=== PATIENT | male | born 1985 | race Caucasian/White ===

== ENCOUNTER 2020-01-12 07:30 | Outpatient (RCR) | payer OTHER, SELFPAY ==
--- NOTE | 2020-01-13 09:30 | PC.NURSE ---
Pt called out today due to not sleeping and feeling exhausted. Pt will start tomorrow.
--- NOTE | 2020-01-13 09:30 | PC.NURSE ---
Please note that pt prefers to be called Anusha and uses she/her pronouns. Pt was scheduled to begin the PHP program today, 01/13/20 at 9 am. Pt called her clinician to inform that she did not sleep last night and will be unable to start today. Pt will start tomorrow, 01/14/20.
--- NOTE | 2020-01-13 14:51 | PC.NURSE ---
TW was forwarded a message left by pt stating that she would be unable to participate in PHP at this time as her symptoms are becoming severe. Pt reported that she was not well and requested a call back. TW called pt back and pt informed TW that she could no longer eat solid foods and has felt manic over the past few days. Pt states that she had been exposed to someone with COVID and she was under mandatory quarantine. TW gave pt the number to [facility] crisis, which she gladly accepted, and requested that pt call for an evaluation. Pt appeared relieved when told crisis could evaluate via telehealth. Pt reported that she felt safe calling crisis and agreed to keep the program updated in regards to her status. Pt agreeable and thanked TW for the return call.
--- NOTE | 2020-01-17 10:19 | PC.NURSE ---
Pt was scheduled for a reassessment after pt had called reporting she was ready to start the program. Reassessment scheduled for 01/17/20 at 10am. Pt was a no show for this appointment. TW called pt and left message asking for a call back. Call back number given. Pt's phone went directly to [employer].
== END 2020-01-31 07:57 | disposition home or self-care (01) ==
LOC: HO.PHPA 07:30
PROVIDERS: Visit Provider Psychiatry & Neurology Psychiatry
DX: F32.9 Major depressive disorder, single episode, unspecified (principal); F64.0 Transsexualism

== ENCOUNTER 2020-01-31 07:52 | Outpatient (RCR) | payer OTHER, SELFPAY ==
--- NOTE | 2020-02-01 10:19 | PC.NURSE ---
Patient is a 34 year old transgendered male to female who was scheduled to start the PHP program today however patient reported to staff that she was feeling suicidal, denied current plan or intent. Reports that she overdosed 3 days ago and was sent home from the emergency room in [place] because she thinks that no one believes that she overdosed. Pt was recently hospitalized and reported to staff that she was put on Thorazine however she stopped taking medications once discharged from hospital. Pt is delusional. Talks about being a vampire for 3 years and has drank 100 gallons of blood. Uses lancets to owusu her skin and drink her blood. Also stated that she needs to be legally committed as she wants to eat people. Patient spoke to staff and does not want to go to [place] and would prefer to go to [facility] for a crisis evaluation. Pt is going to drive to [facility] as she wants to talk to crisis. She is help seeking and wants to be a voluntary patient. Nurse to Nurse done with Jordyn in [facility] ER.
--- NOTE | 2020-02-01 11:40 | PC.NURSE ---
Pt was scheduled to begin PHP today. Pt present for the beginning of the 9am community meeting, however was noticed to leave the meeting abruptly. Pt then called TW to report that she had received a phone call which disrupted her camera and microphone. TW instructed pt to log into link B for the 930 group. At 933am TW received a call from pt stating that she was too severe to attend PHP. TW questioned if pt was going to crisis. Pt said no, that she has been to crisis and has been evaluated over 30 times and has been sent home. Pt reports that they tell her that she is at baseline and she gets discharged. Pt reports that she is a vampire and no one believes her. Pt stated, I need to be legally committed. Tw asked PHP supervior to come into the call, pt agreed and was placed on speaker. Pt was offered to be sectioned to the ED, however pt respoded that she needed something stronger than a section. . Pt reported that she wanted to eat people and that she has been a vampire for 3 years and she drinks over 100 gallons of blood. Pt reports that no one believes her- she hung herself 2x in [place] and she was discharged. Pt reported that she overdosed on all her medications and she was discharged. Pt reports that she can only eat 100 calories a day. Pt reports that crisis hangs up on her when she calls. Pt reports crisis does not believe her, her family an ssupport peopple do not believe her. Pt does not want to go to [facility] as they discharge her. PHP home supervisor suggested a section to [facility]. Pt agreeable. Tw agreed to check in with pt every 5t minutes to maintain safety. Pt agreed she could be safe while PHP staff work on gettign pt to [facility]. TW called pt to check in and informed her that if we section her she will go to [place]. Pt agreed to be transported voluntarily. TW called pt again- informed that ambulance company does not have the means to transport from [place] to [place]. Pt agrees to drive herself to [facility]. Pt contracted for safety and agreed to call PHP when she arrives. Meanwhile PHP staff contacted [facility] crisis and put pt on alert; PHP RN completed nurse to nurse in the [facility] ED. Pt called at 1050am to infom that she had arrived to the ED, was assured information had been passed to ED and crisis staff and that Pt should check herself in.
== END 2020-02-02 10:33 | disposition home or self-care (01) ==
LOC: HO.PHPA 07:52
PROVIDERS: Visit Provider Psychiatry & Neurology Psychiatry
DX: F32.9 Major depressive disorder, single episode, unspecified (principal)

== ENCOUNTER 2020-02-01 10:55 | Emergency (ER) | payer MEDICAID, SELFPAY ==
[2020-02-01 11:08] VITALS: BP 135/74; PULSE 92; RESP 18; TEMP 36.9; O2SAT 96; BMI 42.5
[2020-02-01 11:16] VITALS: BP 135/74; PULSE 92; RESP 18; TEMP 36.9; O2SAT 96
[2020-02-01 13:18] LABS: MANUAL DIFF FLAG NO
[2020-02-01 13:33] LABS: Basophils Percent Auto 0.6 % (0-2); Eosinophils Absolute Auto 0.1 X10*3/uL (0.0-0.4); Eosinophils Percent Auto 1.1 % (0-4); Imm Gran Abs Auto 0.04 X10*3/uL (0.00-0.03); Imm Gran Pct Auto 0.6 % (0.0-0.4); Lymphocytes Absolute Auto 1.3 X10*3/uL (1.2-4.9); Lymphocytes Percent Auto 20.5 % (20-40); Mean Corpuscular Hemoglobin 29.3 pg (27.0-33.0); Mean Corpuscular Volume 84.9 fL (80-98); Monocytes Absolute Auto 0.5 X10*3/uL (0.1-1.2); Monocytes Percent Auto 8.2 % (2-11); Neutrophils Absolute Auto 4.3 X10*3/uL (2.0-8.3); Platelet Count 240 X10*3/uL (160-400); White Blood Count 6.2 X10*3/uL (4.8-10.8)
[2020-02-01 13:46] LABS: Ethanol < 10 mg/dL
[2020-02-01 13:48] LABS: Amphetamine Screen Urine Not Detected (Not Detect); Barbiturates, Urine Not Detected (Not Detect); Benzodiazepines Screen Urine Not Detected (Not Detect); Cannabinoid Screen Urine Not Detected (Not Detect); Cocaine Screen Urine Not Detected (Not Detect); Opiate Screen Urine Not Detected (Not Detect); Phencyclidine Screen Urine Not Detected (Not Detect)
[2020-02-01 13:50] LABS: Acetaminophen LAB < 1 mcg/mL (<30); Albumin Level 4.7 g/dL (3.5-5.0); Alkaline Phosphatase 111 U/L (39-117); Anion Gap 12 (12-20); Bilirubin Total 0.3 mg/dL (0.0-1.0); Blood Urea Nitrogen 13 mg/dL (9-16); Calcium 10.1 mg/dL (8.4-10.2); Carbon Dioxide 28 mmol/L (22-29); Chloride 105 mmol/L (96-108); Estimated Glomerular Filt Rate > 60; Glucose Random 130 mg/dL (60-115); Potassium 4.2 mmol/l (3.3-5.1); Salicylate < 5.0 mg/dL (15-30); Sodium 141 mmol/L (135-145); Total Protein 7.6 g/dL (6.5-8.0)
[2020-02-01 14:10] LABS: Thyroid Stimulating Hormone 1.38 uIU/mL (0.32-4.0)
--- NOTE | 2020-02-01 16:19 | ED_ITS ---
HPI - Psych General Chief Complaint: Psychiatric Symptoms Stated Complaint: CRISIS Time Seen by Provider: 02/01/20 12:00 History of Present Illness HPI Narrative: 35-year-old female who presents to the emergency department for evaluation of suicidal and homicidal ideation. The patient is a man in transition to a woman. She states that approximately 3 and half years prior he was smoking marijuana and watching a vampire moving. She states that this event caused her to become a vampire. She states that she can not go out into the sun without having a seizure. She states that she is unable to walk barefoot since she is a vampire. She states that her body temperature is extremely level fall fall which is expected in a vampire. She states that if she needs human food and causes her to vomit. She states that she sticks her arm multiple times and socks on her blood. She believes that she has drained over 100 L of her own blood in order to stay alive. She states that she is suicidal and that she wants to hang herself or drown herself. She states that she overdosed on me dications for days prior was seen at [facility] and discharged home. The patient states that in order to get sexually aroused she has been watching pornography which involves been enjoying them cells in very bloody ways. She also states that she wants to kill a co-worker. She states that she has severe abdominal pain and has been constant for many years. She states that she has not been able to sleep for 3 weeks. She states she has been seen and many different hospitals and was last seen at [facility] several days prior Related Data Home Medications Medication Instructions Recorded Confirmed No Known Home Meds 02/01/20 02/01/20 Allergies Allergy/AdvReac Type Severity Reaction Status Date / Time No Known Allergies Allergy Unverified 02/01/20 12:00 Review of Systems Review of Systems: Yes all other systems are reviewed and are negative Constitutional: Constitutional: Reports as per HPI Eyes: Eyes: Reports as per HPI ENT: Reports as per HPI Cardiovascular: Cardiovascular: Reports as per HPI Respiratory: Respiratory: Reports as per HPI Gastrointestinal: Gastrointestinal: Reports as per HPI Genitourinary: Genitourinary: Reports as per HPI Musculoskeletal: Musculoskeletal: Reports as per HPI Integumentary/Breasts: Skin/Breast: Reports as per HPI Neurologic: Reports as per HPI and Reports Abnormal speech present Psychiatric: Psychiatric: Reports as per HPI Allergic/Immunologic: Allergic/Immunologic: Reports as per HPI [facility] Past Medical History Medical History Hypothyroidism Social History Social History Alcohol intake: unknown Smoking Status: Unknown if ever smoked Use of substances other than those prescribed or required for medical reasons: Unknown Advance Directives: No Advance Directives Information Provided: No Physical Exam Vital Signs: Vital Signs: Last Vital Signs Temp 98.4 F 02/01/20 11:16 Pulse 92 02/01/20 11:16 Resp 18 02/01/20 11:16 BP 135/74 02/01/20 11:16 Pulse Ox 96 02/01/20 11:16 Body Mass Index 42.5 Const: General: cooperative, no acute distress, alert and awake Orientation/consciousness: oriented to person and oriented to place Limitations: no limitations HENMT: Head: Yes normal to inspection, Yes normocephalic and Yes atraumatic Ears: external ears normal Eyes: General: appearance normal, both eyes and all related structures Periorbital: periorbital findings normal Eyelids: Yes eyelids normal Conjunctivae: conjunctivae normal Sclerae: sclerae normal Corneas: corneas normal Pupils: Equal, round and reactive pupils present Direct Ophthalmoscopy: normal light reflex Neck: Neck: Yes normal visual inspection and Yes supple Lymphatic: no l ymphadenopathy noted Chest: Chest palpation & inspection: normal inspection of the chest and normal palpation of entire chest wall Resp: Effort & Inspection: normal respiratory effort, abnormal respiratory pattern, no audible wheezes and no respiratory distress Auscultation: clear to auscultation bilaterally, no crackles, no rales, no rhonchi and no wheezes Cardio: Rate: regular rate Rhythm: regular rhythm Heart sounds: S1 normal heart sound present, S2 normal heart sound present and Murmur heart sound present GI: Inspection: No distended Palpation (GI): Soft to palpation, nontender, no guarding and No hepatosplenomegaly present Auscultation: normal bowel sounds : General: Yes no CVA tenderness Back/Spine/Pelvis: Back: no CVA tenderness Skin: Rashes: no rashes Wounds: wounds noted (Multiple puncture lesions on the patient's arms consistent with self injury) Neuro: General: oriented to person and oriented to place Cranial nerves: Yes CN's II-XII intact bilaterally and Yes Equal, round and reactive pupils present Cognition (Neuro): normal cognition Speech: Abnormal speech present Motor exam (neuro): 5/5 motor strength present throughout Extrem: General: Yes normal to inspection, Yes full ROM, Yes no pedal edema and Yes no calf tenderness Psych: Speech and movement: Normal speech and movement present and Clear speech present Affect: Indifferent affect present and Other affect and mood findings present (Very flat affect) Attitude: cooperative Thought content: Suicidality present, Homicidality present and delusions (Fixed delusions around being a vampire) Course Course Course Narrative: 35-year-old female who presents to the emergency department for evaluation of suicidal and homicidal ideation and with a fixed delusion of being a vampire. The patient's examination is consistent with self-inflicted wounds where she has been cutting himself to suck his own blood. Patient's laboratory evaluation revealed a slightly elevated glucose of 130, slight elevation in his AST and ALT of 34 and 55. Urine tox screen was negative. Alcohol was negative. TSH was within the normal range. The patient was m edically cleared for crisis evaluation. The patient was seen by N. Given his suicidal and homicidal ideation, he was placed on a Section 12 and will be kept in the emergency department until an appropriate psychiatric bed can be located. At the end of my shift, the patient's care was turned over to my colleague, Dr. Letha Fernandez. MDM - Psych Restraints Face to Face Assessment: Face to Face Assessment: Current Situation: After assessment of the patient, a review of the pertinent medical record and a discussion with nursing staff, I feel the patient requires a restrain intervention. Reaction To: [] Medical Condition: [] Behavioral State: [] Continued Need: [] Lab Data Result diagrams: 02/01/20 13:12 02/01/20 13:12 Labs: Lab Results 02/01/20 02/01/20 02/01/20 Range/Units 12:54 13:12 13:12 WBC 6.2 (4.8-10.8) X10*3/uL RBC 5.35 (4.20-5.50) X10*6/uL Hgb 15.7 (12.0-16.0) g/dl Hct 45.4 (37-47) % MCV 84.9 (80-98) fL MCH 29.3 (27.0-33.0) pg MCHC 34.6 (31.0-35.0) g/dl RDW 12.0 (11.0-16.0) % Plt Count 240 (160-400) X10*3/uL MPV 9.6 (9.4-12.3) fL Immature Gran % (Auto) 0.6 H (0.0-0.4) % Neut % (Auto) 69.0 (45-73) % Lymph % (Auto) 20.5 (20-40) % Crane % (Auto) 8.2 (2-11) % Eos % (Auto) 1.1 (0-4) % Baso % (Auto) 0.6 (0-2) % Lymph # (Auto) 1.3 (1.2-4.9) X10*3/uL Crane # (Auto) 0.5 (0.1-1.2) X10*3/uL Eos # (Auto) 0.1 (0.0-0.4) X10*3/uL Baso # (Auto) 0.0 (0.0-0.2) X10*3/uL Abs Immat Gran (auto) 0.04 H (0.00-0.03) X10*3/uL Absolute Neuts (auto) 4.3 (2.0-8.3) X10*3/uL Absolute Nucleated RBC 0.000 (0.0-0.012) X10*3/uL Nucleated RBC % (auto) 0.0 (0.0-0.2) /100WBC Sodium 141 (135-145) mmol/L Potassium 4.2 (3.3-5.1) mmol/l Chloride 105 (96-108) mmol/L Carbon Dioxide 28 (22-29) mmol/L Anion Gap 12 (12-20) BUN 13 (9-16) mg/dL Creatinine 0.91 (0.5-1.4) mg/dL Estim Creat Clear Calc 104.0 Estimated GFR > 60 Random Glucose 130 H (60-115) mg/dL Calcium 10.1 (8.4-10.2) mg/dL Total Bilirubin 0.3 (0.0-1.0) mg/dL AST 34 H (5-31) U/L ALT 55 H (0-31) U/L Alkaline Phosphatase 111 (39-117) U/L Total Protein 7.6 (6.5-8.0) g/dL Albumin 4.7 (3.5-5.0) g/dL TSH 1.38 (0.32-4.0) uIU/mL Salicylates < 5.0 L (15-30) mg/dL Urine Opiates Screen Not Detected (Not Detect) Acetaminophen < 1 (<30) mcg/mL Ur Barbiturates Screen Not Detected (Not Detect) Ur Phencyclidine Scrn Not Detected (Not Detect) Ur Amphetamines Screen Not Detected (Not Detect) U Benzodiazepines Scrn Not Detected (Not Detect) Urine Cocaine Screen Not Detected (Not Detect) U Marijuana (THC) Screen Not Detected (Not Detect) Ethyl Alcohol mg/dL 02/01/20 Range/Units 13:12 WBC (4.8-10.8) X10*3/uL RBC (4.20-5.50) X10*6/uL Hgb (12.0-16.0) g/dl Hct (37-47) % MCV (80-98) fL MCH (27.0-33.0) pg MCHC (31.0-35.0) g/dl RDW (11.0-16.0) % Plt Count (160-400) X10*3/uL MPV (9.4-12.3) fL Immature Gran % (Auto) (0.0-0.4) % Neut % (Auto) (45-73) % Lymph % (Auto) (20-40) % Crane % (Auto) (2-11) % Eos % (Auto) (0-4) % Baso % (Auto) (0-2) % Lymph # (Auto) (1.2-4.9) X10*3/uL Crane # (Auto) (0.1-1.2) X10*3/uL Eos # (Auto) (0.0-0.4) X10*3/uL Baso # (Auto) (0.0-0.2) X10*3/uL Abs Immat Gran (auto) (0.00-0.03) X10*3/uL Absolute Neuts (auto) (2.0-8.3) X10*3/uL Absolute Nucleated RBC (0.0-0.012) X10*3/uL Nucleated RBC % (auto) (0.0-0.2) /100WBC Sodium (135-145) mmol/L Potassium (3.3-5.1) mmol/l Chloride (96-108) mmol/L Carbon Dioxide (22-29) mmol/L Anion Gap (12-20) BUN (9-16) mg/dL Creatinine (0.5-1.4) mg/dL Estim Creat Clear Calc Estimated GFR Random Glucose (60-115) mg/dL Calcium (8.4-10.2) mg/dL Total Bilirubin (0.0-1.0) mg/dL AST (5-31) U/L ALT (0-31) U/L Alkaline Phosphatase (39-117) U/L Total Protein (6.5-8.0) g/dL Albumin (3.5-5.0) g/dL TSH (0.32-4.0) uIU/mL Salicylates (15-30) mg/dL Urine Opiates Screen (Not Detect) Acetaminophen (<30) mcg/mL Ur Barbiturates Screen (Not Detect) Ur Phencyclidine Scrn (Not Detect) Ur Amphetamines Screen (Not Detect) U Benzodiazepines Scrn (Not Detect) Urine Cocaine Screen (Not Detect) U Marijuana (THC) Screen (Not Detect) Ethyl Alcohol < 10 mg/dL Discharge Plan Discharge Prescriptions: No Action No Known Home Meds RF: 0
[2020-02-01] MEDS: Acetaminophen 325 MG TABLET 975 MG PO (16:23)
[2020-02-01 16:29] VITALS: BP 137/76; PULSE 90; RESP 18; TEMP 36.3; O2SAT 99
--- NOTE | 2020-02-01 17:26 | PC.NURSE ---
PT upset, asking to leave, plan of care explained. Pt states she no longer feels homicidal and feels as though she should be able to leave. PT asking for IV zofran and morphine. Plan of care explained, provider aware of complaints. Pt stating that she has only been able to eat 300 calories this week and needs medical attention. Verbal reassurance given. PT currently on the phone.
--- NOTE | 2020-02-01 17:39 | PC.NURSE ---
PT approached nurses station and stated that she just called the police and asked to be transfered to [facility] stating that she is tired of being ignored. Plan of care explained, verbal ressurance given. Pt stating again that she has not eaten or slept. Pt redirected back to her room. [place] police department called and stated that PT called them and requested that she be transferred. Pt told not to call police again, pt agreeable at this time. PT currently eating dinner.
[2020-02-01] MEDS: LORazepam 1 MG TABLET 2 MG PO (17:45)
--- NOTE | 2020-02-01 19:26 | PC.NURSE ---
Report received. PT requesting to see the doctor because he is not suicidal anymore and wants to go home . PT is agitated and repeatedly insisting to see provider. Process explained to PT.
[2020-02-01 20:13] VITALS: BP 129/80; PULSE 93; RESP 20; TEMP 36.5; O2SAT 95
--- NOTE | 2020-02-01 20:17 | MHC.CARE ---
CARE Team reaches out to N crisis to discuss pt's case. KARLIE Nicholas reports that pt was assessed this afternoon by N, however, [facility] lead burner supervisor, Ana, reports that pt is in the list to be seen, and has not yet been seen. Ana reports that a clinician will be out to see pt tonight. [facility] has already done collateral contact with pt's sister. Pt was assessed by [facility] today at [facility]. This information was passed along to Phoebe.
[2020-02-01] MEDS: Acetaminophen 325 MG TABLET 650 MG PO (20:45)
[2020-02-01] MEDS: Zolpidem Tartrate 5 MG TABLET PO (22:07)
[2020-02-02] VITALS: BP 113/80; PULSE 96; RESP 18; TEMP 36.6; O2SAT 97
--- NOTE | 2020-02-02 04:26 | PC.NURSE ---
PT woke up complaining of extreme back pain. PT stated that she has pain throughout her entire body along with muscle spasms in the upper back and neck region. PT also stated that tylenol would not help and he needed a heavy painkiller . Provider notified.
[2020-02-02] MEDS: Cyclobenzaprine HCl 10 MG TABLET PO (05:15)
[2020-02-02] MEDS: Acetaminophen 325 MG TABLET 650 MG PO (05:16)
--- NOTE | 2020-02-02 06:43 | PC.NURSE ---
PT approached nurse's station and asked to have a private conversation in her room. PT stated that she feels like she isn't being taken seriously. PT believes that inpatient treatment will not be sufficient enough and would like to be put on a Section 7 instead. PT stated that she is having frequent thoughts about cutting up and eating her coworker whom she loves. PT admits to traumatic upbringing that has made an impact on her ability express her feelings. PT stated that she went to [facility] yesterday and told them the same thing and was then laughed at, not taken seriously, and then discharged. PT believes that these thoughts will soon become reality if she does not receive proper treatment.
[2020-02-02 06:51] VITALS: BP 127/65; PULSE 86; RESP 18; TEMP 36.7; O2SAT 97
[2020-02-02 08:00] VITALS: RESP 20
--- NOTE | 2020-02-02 08:46 | PC.NURSE ---
Report received from dawna Hatch. Pt awake on arrival, stating he would like to be discharged, stating 'i'm at baseline, it's illegal to keep me here if I'm not a threat to myself or others.' [facility] called re: re-eval- state they will only re-eval w/ MD request.' Pt aware that p[rovider will be asked to speak w/ pt on arrival. Pt angry, on telephone. M Brown in to speak w/ pt.
--- NOTE | 2020-02-02 10:12 | PC.NURSE ---
KARLIEN in to see pt.
--- NOTE | 2020-02-02 10:43 | PC.NURSE ---
Pt's brother called, requesting to speak w/ clinician. [facility] aware. Pt to be discharged as ordered. Pt affect intense but even. Responses appropriate. denies si/hi. Pt gait steady. No concerns reported.
[2020-02-08 14:03] LABS: Hematocrit 45.4 % (42-52); Red Blood Count 5.35 X10*6/uL (4.60-5.80)
[2020-02-08 14:04] LABS: Hemoglobin 15.7 g/dl (14.0-18.0)
[2020-02-08 14:05] LABS: Mean Corpuscular HGB Conc 34.6 g/dl (31.0-36.0); Mean Platelet Volume 9.6 fL (9.4-12.4)
[2020-02-10 14:43] LABS: Aspartate Amino Transferase 34 U/L (5-37)
[2020-02-10 14:44] LABS: Alanine Aminotransferase 55 U/L (0-40)
== END 2020-02-02 10:54 | disposition home or self-care (01) ==
PROVIDERS: Emergency Provider Emergency Medicine Emergency Medical Services; PCP Nurse Practitioner Family
DX: F22 Delusional disorders (principal); R45.851 Suicidal ideations; R45.850 Homicidal ideations; Z79.899 Other long term (current) drug therapy
CPT/HCPCS: 36415; 80053; 80307; 80320; 84443; 85025; 99285; G0480